=== PATIENT | male | born 1980 | race Caucasian/White ===

== ENCOUNTER 2016-10-09 19:42 | Emergency (ER) | payer OTHER ==
[~2016-10-09] VITALS: Ht 180.3 cm; Wt 83.9 kg
== END 2016-10-09 20:54 | disposition home or self-care (01) ==
LOC: ED 19:42
DX: S53.402A Unspecified sprain of left elbow, initial encounter (principal); F17.200 Nicotine dependence, unspecified, uncomplicated; W01.0XXA Fall on same level from slipping, tripping and stumbling without subsequent striking against object, initial encounter
CPT/HCPCS: 73080; 99283

== ENCOUNTER 2016-10-16 14:58 | Emergency (ER) | payer OTHER ==
[~2016-10-16] VITALS: Ht 180.3 cm; Wt 83.9 kg
== END 2016-10-16 16:22 | disposition home or self-care (01) ==
LOC: ED 14:58
DX: F15.20 Other stimulant dependence, uncomplicated (principal); F17.200 Nicotine dependence, unspecified, uncomplicated
CPT/HCPCS: 80053; 80176; 81001; 84443; 85025; 87088; 87147; 99283; G0480

== ENCOUNTER 2016-10-16 21:30 | Emergency (ER) | payer OTHER ==
[~2016-10-16] VITALS: Ht 180.3 cm; Wt 83.9 kg
== END 2016-10-16 22:07 | disposition home or self-care (01) ==
LOC: ED 21:30
DX: F15.10 Other stimulant abuse, uncomplicated (principal); F17.200 Nicotine dependence, unspecified, uncomplicated
CPT/HCPCS: 99283